=== PATIENT | male | born 1965 ===

== ENCOUNTER 2017-11-30 06:14 | Day surgery (SDC) | payer OTHER ==
[2017-11-17 14:11] VITALS: BMI 32.4
[2017-11-30] MEDS ORDERED: Lidocaine/Epinephrine 1% 1:100000 10 ML IJ ONE (07:21)
[2017-11-30] MEDS ORDERED: ceFAZolin IV 1 gm in Dextrose 2 GM/100 ML BAG IVPB ONE (07:21)
[2017-11-30] MEDS ORDERED: Bupivacaine 0.25% 20 ML INJ IJ ONE ×2 (07:21→07:22)
[2017-11-30] MEDS ORDERED: Midazolam 2 MG/2 ML VIAL ONE (07:30)
[2017-11-30] MEDS ORDERED: Propofol 10 mg/ml Inj (20 ML) ONE ×2 (07:31→10:26)
[2017-11-30] MEDS ORDERED: Neostigmine Methylsulfate 3mg/3ml Syringe IV ONE (10:29)
[2017-11-30] MEDS ORDERED: HYDROmorphone 0.5 mg/0.5 ml ISec IVP PRN (11:29)
--- NOTE | 2017-11-30 11:43 | PCM.SURG1 ---
Surgeon's Initial Post Op Note - Surgeon's Notes Surgeon: Mracella Trevino MD Jewelry Sales Representative: YUSUF Ramires Type of Anesthesia: General Endo Pre-Operative Diagnosis: Left Inguinal Hernia possible Bilateral Operative Findings: Left Indirect Inguinal Hernia. Left Large Lipoma of spermatic cord. Right direct Inguinal hernia. Right Large Lipoma of speramtic cord Post-Operative Diagnosis: Left Indirect Inguinal Hernia. Left Large Lipoma of spermatic cord. Right direct Inguinal hernia. Right Large Lipoma of speramtic cord Operation Performed: Robotic Left Indirect Inguinal Hernia. Robotic Right direct Inguinal hernia. Robotic Left Large Lipoma of spermatic cord. Robotic Right Large Lipoma of speramtic cord. Lap B/L TAP block placement Specimen/Specimens Removed: Left Large Lipoma of spermatic cord. Right Large Lipoma of speramtic cord Estimated Blood Loss: EBL {In ML}: 10 Blood Products Given: N/A Drains Used: No Drains Post-Op Condition: Good Date of Surgery/Procedure: 11/30/17 Time of Surgery/Procedure: 11:43
[2017-11-30 14:56] VITALS: BP 119/81; PULSE 76; RESP 18; TEMP 97.8; O2SAT 95
[2017-11-30] MEDS ORDERED: Oxycodone/Acetaminophen 5/325 mg Tab PO PRN (15:29)
--- NOTE | 2017-12-01 07:00 | OP ---
PROCEDURE DATE: 11/30/2017 PREOPERATIVE DIAGNOSIS: Left inguinal hernia, possible bilateral inguinal hernia. POSTOPERATIVE DIAGNOSES: 1. Left indirect inguinal hernia. 2. Right direct inguinal hernia. 3. Lipoma of the spermatic cord bilaterally, large. OPERATIVE PROCEDURES: 1. Robotic left inguinal hernia repair with a mesh. 2. Robotic right inguinal hernia repair with a mesh. 3. Excision of the lipoma of the cord bilaterally. 4. Laparoscopic TAP block placement bilaterally. SURGEON: Glenn Trevino MD LIVE IN HOUSEKEEPER: MARGARITA Ramires ANESTHESIA: General endotracheal tube anesthesia. ESTIMATED BLOOD LOSS: Around 10 mL. DRAIN: None. PATHOLOGY: The lipoma of the cord on both sides was sent for the pathology. COMPLICATIONS None. INTRAOPERATIVE FINDINGS: The patient had left direct inguinal hernia with large lipoma of the cord and the patient also had right direct inguinal hernia with a large lipoma of the spermatic cord. DESCRIPTION OF PROCEDURE: On intraoperative steps, this is a 52-year-old male who was diagnosed with left inguinal hernia and the patient was consented for robotic left inguinal hernia repair with a mesh, possible bilateral repair. The patient was brought to the OR, placed supine on operating table. After induction of anesthesia, the abdomen was prepped and draped in the usual sterile fashion. The supraumbilical transverse incision was made after incising skin, subcutaneous tissue and the fascia. The robotic camera port was placed. Pneumo was created. Another three 8-mm port was placed in the upper abdomen. Robot was brought in. Camera arm as well as arm 1 and arm 2 was docked and the first pelvic exploration was done. The patient found to have a left indirect inguinal hernia and the patient also had right direct inguinal hernia and the peritoneum was sutured from the left ASIS up to the midline and then right ASIS up to the midline and then dissection was carried down in the space of Retzius in the midline and first left side, the peritoneal reflection was dissected and the vas deferens and spermatic cord vessels were from the indirect hernial sac and the sac was reduced back in to the peritoneal cavity. The patient also had a large lipoma of the cord that was excised multiple times in order to completely debride the spermatic cord vessel. After proper excision of the lipoma on the left side, the inferior dissection was done up to the pelvic brim and now the similar dissection was done on the right side. The peritoneum was from the lateral abdominal wall. Vas deferens and spermatic cord vessels were . The dissection was carried down to reduce the direct hernial sac and inferior dissection was done. The patient also had a large lipoma on the cord on the right side that was also excised and it was sent off the table for the pathology. There was proper hemostasis in each and every part of the procedure. After that, the anatomical mesh was placed and mesh was implanted. After proper implantation of the mesh, the peritoneum was sutured with 2-0 Vicryl interrupted and 3-0 PDS V-Loc continuous suture, and after that procedure was converted to laparoscopic and bilateral TAP block was given. A 30:30 mL of Marcaine was injected in the transverse abdominal muscle plane area and after that, all the ports were taken out under vision. Pneumo was deflated and umbilical port site was closed in two layers, the fascia with 0 Vicryl interrupted suture, skin with 4-0 Monocryl and dry sterile dressing was applied. The patient tolerated the procedure well. Count of instrument and gauze was correct. There was no apparent complication. The patient was extubated in OR and sent to the postanesthesia care in stable condition. Glenn Trevino MD
== END 2017-11-30 15:52 | disposition home or self-care (01) ==
LOC: C.SDS 06:14
PROVIDERS: ATTEND Surgery Surgical Critical Care
DX: K40.20 Bilateral inguinal hernia, without obstruction or gangrene, not specified as recurrent (principal); D17.6 Benign lipomatous neoplasm of spermatic cord
CPT/HCPCS: 49650; 55520; 88304; C1781; J0690; J1885; J2250; J2405; J2704; J2710; J3010